=== PATIENT | female | born 1990 | race Caucasian/White ===

== ENCOUNTER 2016-11-30 19:20 | Emergency (ER) | payer SELFPAY ==
[2016-11-30 20:54] LABS: MEAN CORPUSCULAR HEMOGLOBIN 30.4 pg (27.0-33.0); MEAN CORPUSCULAR HGB CONC 34.3 g/dl (32.0-36.5); MEAN CORPUSCULAR VOLUME 88.6 fl (80.0-96.0); RED CELL DISTRIBUTION WIDTH 13.4 % (11.5-14.5); WHITE BLOOD COUNT 7.8 K/mm3 (4.0-10.0)
--- NOTE | 2016-11-30 21:10 | REPUSA ---
Clinical history: bleeding. Findings: Real-time transabdominal and transvaginal ultrasound images of the pelvis were obtained. An anteverted uterus is noted, measuring 8.1 x 4.5 x 4.9 cm. The uterus demonstrates normal echotexture and echogenicity. The irregular shaped intrauterine gestational sac has a mean sac diameter 18.8 mm, measuring 5 weeks 5 days. The gestational sac is located in the lower uterine canal. No pole o r yolk sac is identified at this time. The right ovary measures 3.2 x 2.0 x 1.9 cm. The left ovary me asures 2.2 x 1.5 x 2.3 cm. No adnexal masses are seen. Color Doppler flow is seen within both ovaries . There is no evidence of free fluid. Impression: 1. Irregular shaped intrauterine gestational sac is located in the lower uterine canal, without evide nce of a pole or yolk sac. The sac measures 5 weeks 5 days by ultrasound measurements. The find ings are most suggestive of a in progress. Follow-up with serial serum beta hCG levels may b e helpful for further evaluation.
[2016-11-30 21:25] LABS: ANION GAP 8 MEQ/L (8-16); BLOOD UREA NITROGEN 13 MG/DL (7-18); CALCIUM LEVEL 9.4 MG/DL (8.5-10.1); CARBON DIOXIDE LEVEL 30 MEQ/L (21-32); CHLORIDE LEVEL 100 MEQ/L (98-107); CREATININE FOR GFR 0.57 MG/DL (0.55-1.02); GLOMERULAR FILTRATION RATE > 60.0 (>60); GLUCOSE, FASTING 90 MG/DL (70-105); HCG, SERUM QUANTITATIVE 2453 MIU/ML; POTASSIUM SERUM 4.1 MEQ/L (3.5-5.1); SODIUM LEVEL 138 MEQ/L (136-145)
--- NOTE | 2016-11-30 22:39 | EDDOCDS ---
Physician Documentation [facility] Name: Ann Wu Age: 26 yrs Sex: Female : 1990 Arrival Date: 11/30/2016 Time: 19:20 Bed TR8 Private MD: NO PRIMARY PHYSICIAN, . Disposition: 11/30/16 22:27 Discharged to Home/Self Care. Impression: Incomplete spontaneous without complication. - Condition is Stable. - Discharge Instructions: Incomplete Miscarriage, Miscarriage. - Prescriptions for Percocet 5- 325 mg Oral Tablet - take 1 tablet by ORAL route every 6 hours As needed MDD: 4 tabs; 20 tablet. - Medication Reconciliation, Local Pharmacy Hours form. - Follow up: Woody Devi MD; When: Call to arrange an appointment; Reason: Recheck today's complaints, Continuance of care. - Problem is new. - Symptoms are unchanged. Historical: - Allergies: No known drug Allergies; - Home Meds: 1. vitamins - PMHx: none; - PSHx: none; - Social history: Smoking status: Patient uses tobacco products, light tobacco smoker. No barriers to communication noted, The patient speaks fluent Moroccan, Speaks appropriately for age. - Family history: No immediate family members are acutely ill. - : The pt / caregiver states he / she is not on anticoagulants. Home medication list is obtained from the patient. - Exposure Risk Screening:: None identified. 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 7 in. (170.18 cm) (R); Pain 3/10; 19:22 Body Mass Index 24.28 (70.31 kg, 170.18 cm) gr2 MDM: 19:30 Urine Culture Ordered. EDMS 19:30 Complete Blood Count Ordered. EDMS 19:30 Hcg, Serum Quantitative Ordered. EDMS 19:30 Type & Screen Ordered. EDMS 19:30 Urinalysis Ordered. EDMS 19:30 BMP Ordered. EDMS 19:30 US 1st trimester Ordered. EDMS 20:37 TRANSVAGINAL US Ordered. EDMS 20:37 DUPLEX SCAN LIMITED (DOPPLER) Ordered. EDMS 22:11 BMP Reviewed. mo1 22:12 Type & Screen Reviewed. mo1 22:12 Urinalysis Reviewed. mo1 22:12 Complete Blood Count Reviewed. mo1 22:12 Hcg, Serum Quantitative Reviewed. mo1 Signatures: Dispatcher [employer] EDMario Lomax RN RN cz Hal Fregoso PA PA mo1 Hal Woodard RN RN mb9 MTDD
--- NOTE | 2016-11-30 22:39 | EDDOCDS ---
Nurse's Notes [facility] Name: Ann Wu Age: 26 yrs Sex: Female : 1990 Arrival Date: 11/30/2016 Time: 19:20 Bed TR8 Private MD: NO PRIMARY PHYSICIAN, . Diagnosis: Incomplete spontaneous without complication Presentation: 11/30 19:22 Presenting complaint: Patient states: she is positive test at [facility]. started spotting since beginning and bleeding intermittently since with flow getting more,now bleeding non-stop 1 pad an hour. Risk factors: The patient reports no loss of conciousness prior to arrival. This patient has not had a hysterectomy. This patient has not begun menopause. Adult Sepsis Screening: The patient does not have new or worsening altered mentation. Patient's respiratory rate is less than 22. Systolic blood pressure is greater than 100. Patient has a qSOFA score of 0- Negative Sepsis Screen. Suicide/Homicide risk assessment- the patient denies having any suicidal and/or homicidal ideations and does not present with any other emotional, behavioral or mental health complaints. Status: Patient is not a student services advisor or dependent. Transition of care: patient was not received from another setting of care. 19:22 Acuity: NUNU Level 3 cz 19:22 Method Of Arrival: Walkin/Carried/Asstd cz Triage Assessment: 19:25 General: Appears in no apparent distress. Pain: Location: pelvis Pain currently is 4 cz out of 10 on a pain scale. Pt Declines HIV testing. 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 vitamins - PMHx: none; - PSHx: none; - Social history: Smoking status: Patient uses tobacco products, light tobacco smoker. No barriers to communication noted, The patient speaks fluent French, Speaks appropriately for age. - Family history: No immediate family members are acutely ill. - : The pt / caregiver states he / she is not on anticoagulants. Home medication list is obtained from the patient. - Exposure Risk Screening:: None identified. Screenin:37 Screening information is obtained from the patient. Fall risk: No risks identified. mb9 Assistance ADL's: requires no assistance with activities of daily living. Abuse/DV Screen: The patient / caregiver reports he/she is: not in a situation that causes fear, pain or injury. Nutritional screening: No deficits noted. Advance Directives: There is no active DNR order. home support is adequate. Assessment: 22:37 General: Appears in no apparent distress, Behavior is appropriate for age, cooperative. mb9 Respiratory: Airway is patent Respiratory effort is even, unlabored. : Reports vaginal bleeding that is with clots. Vital Signs: 19:22 BP 149 / 83; Pulse 96; Resp 18 S; Temp 97.3(O); Pulse Ox 100% on R/A; Weight 70.31 kg gr2 (R); Height 5 ft. 7 in. (170.18 cm) (R); Pain 3/10; 19:22 Body Mass Index 24.28 (70.31 kg, 170.18 cm) gr2 Vitals: 19:22 Log In Time: November 30, 2016 at 19:22. gr2 ED Course: 19:21 Patient visited by Elsa Rachel. gr2 19:21 NO PRIMARY PHYSICIAN, . is Private Physician. gr2 19:21 Patient moved to Waiting gr2 19:22 Patient visited by Elsa Rachel. gr2 19:23 Patient moved to Pre RCE gr2 19:25 Triage Initiated cz 20:09 Patient moved to Ultrasound dmg 20:22 Urinalysis Sent. ar3 20:22 Urine Culture Sent. ar3 20:30 Patient moved to PR1 / 25 ar3 20:39 Patient moved to Pre RCE mb9 20:41 Complete Blood Count Sent. ar3 20:41 BMP Sent. ar3 20:41 Hcg, Serum Quantitative Sent. ar3 20:41 Type & Screen Sent. ar3 21:33 US 1st trimester Returned. EDMS 21:55 Patient moved to Triage 3 mb9 22:05 Hal Fregoso PA is PHCP. mo1 22:05 Ashwin Fulton MD is Attending Physician. mo1 22:13 Patient visited by Hal Fregoso PA. mo1 22:27 Woody Devi MD is Referral Physician. mo1 22:34 Patient moved to TR8 mb9 22:37 The patient / caregiver is instructed regarding the plan of care and ED course. mb9 22:37 No IV's were initiated during this patient's visit. No procedures done that require mb9 assistance. Order Results: Lab Order: Complete Blood Count; [facility] 11/30/16 20:39 Test: WHITE BLOOD COUNT; Value: 7.8; Range: 4.0-10.0; Units: K/mm3; Status: F Test: RED BLOOD COUNT; Value: 4.01; Range: 4.00-5.40; Units: M/mm3; Status: F Test: HEMOGLOBIN; Value: 12.2; Range: 12.0-16.0; Units: g/dl; Status: F Test: HEMATOCRIT; Value: 35.5; Range: 36.0-47.0; Abnormal: Below low normal; Units: %; Status: F Test: MEAN CORPUSCULAR VOLUME; Value: 88.6; Range: 80.0-96.0; Units: fl; Status: F Test: MEAN CORPUSCULAR HEMOGLOBIN; Value: 30.4; Range: 27.0-33.0; Units: pg; Status: F Test: MEAN CORPUSCULAR HGB CONC; Value: 34.3; Range: 32.0-36.5; Units: g/dl; Status: F Test: RED CELL DISTRIBUTION WIDTH; Value: 13.4; Range: 11.5-14.5; Units: %; Status: F Test: PLATELET COUNT, AUTOMATED; Value: 303; Range: 150-450; Units: k/mm3; Status: F Lab Order: Hcg, Serum Quantitative; [facility] 11/30/16 20:39 Test: HCG, SERUM QUANTITATIVE; Value: 2453; Units: MIU/ML; Status: F Test Note: ; GESTATIONAL AGE APPROXIMATE HCG RANGE (MIU/ML) 0.2-1 WEEK 5-50 1-2 WEEKS 50-500 2-3 WEEKS 100-5,000 3-4 WEEKS 500-10,000 4-5 WEEKS 1,000-50,000 5-6 WEEKS 10,000-100,000 6-8 WEEKS 15,000-200,000 2-3 MONTHS 10,000-100,000 NON FEMALES LESS THAN 3.0 Patient samples may contain human heterophilic antibodies that could react with immunoassays to give falsely elevated or depressed results. This assay has been designed to minimize interference from heterophilic antibodies. Elevated hCG levels have also been associated with trophoblastic disease and nontrophoblastic neoplasms. The possibility of having these diseases should be considered before a diagnosis of is made. This test is not intended for use as a surrogate marker for aiding in the diagnosis or monitoring the treatment of cancer patients. Siemens GeoMetWatch methodology. Lab Order: Type & Screen; SPEC'M 11/30/16 20:39 Test: BLOOD TYPE; Value: O POS; Status: F Test: AB SCREEN (INDIRECT SHIRA)GEL; Value: NEGATIVE; Status: F Lab Order: Urinalysis; SPEC'M 11/30/16 20:20 Test: APPEARANCE, URINE; Value: CLEAR; Range: CLEAR; Status: F Test: COLOR, URINE; Value: YELLOW; Range: YELLOW; Status: F Test: PH,URINE; Value: 5.0; Range: 5.0-9.0; Units: UNITS; Status: F Test: SPECIFIC GRAVITY URINE AUTO; Value: 1.019; Range: 1.002-1.035; Status: F Test: PROTEIN, URINE AUTO; Value: NEGATIVE; Range: NEGATIVE; Units: mg/dL; Status: F Test: GLUCOSE, URINE (UA) AUTO; Value: NEGATIVE; Range: NEGATIVE; Units: mg/dL; Status: F Test: KETONE, URINE AUTO; Value: NEGATIVE; Range: NEGATIVE; Units: mg/dL; Status: F Test: UROBILINOGEN, URINE AUTO; Value: 0.2; Range: 0.0-2.0; Units: mg/dL; Status: F Test: BILIRUBIN, URINE AUTO; Value: NEGATIVE; Range: NEGATIVE; Status: F Test: NITRITE, URINE AUTO; Value: NEGATIVE; Range: NEGATIVE; Status: F Test: LEUKOCYTE ESTERASE, URINE AUTO; Value: NEGATIVE; Range: NEGATIVE; Status: F Test: BLOOD, URINE BLOOD; Value: 2+; Range: NEGATIVE; Abnormal: Above high normal; Status: F Test: WBC, URINE AUTO; Value: 1; Range: 0-3; Units: /HPF; Status: F Test: RBC, URINE AUTO; Value: 5; Range: 0-3; Abnormal: Above high normal; Units: /HPF; Status: F Test: BACTERIA, URINE AUTO; Value: NEGATIVE; Range: NEGATIVE; Status: F Test: SQUAMOUS EPITHELIAL CELL UR AU; Value: 1; Range: 0-6; Units: /HPF; Status: F Test: MUCUS, URINE; Value: SMALL; Range: NEGATIVE; Status: F Test: HYALINE CAST, URINE AUTO; Value: 0; Range: 0-1; Units: /LPF; Status: F Test: AMORPHOUS SEDIMENT; Value: SMALL; Range: NEGATIVE; Abnormal: Above high normal; Status: F Lab Order: [facility]; SPEC'M 11/30/16 20:39 Test: GLUCOSE, FASTING; Value: 90; Range: 70-105; Units: MG/DL; Status: F Test: BLOOD UREA NITROGEN; Value: 13; Range: 7-18; Units: MG/DL; Status: F Test: CREATININE FOR GFR; Value: 0.57; Range: 0.55-1.02; Units: MG/DL; Status: F Test: GLOMERULAR FILTRATION RATE; Value: > 60.0; Range: >60; Status: F Test: SODIUM LEVEL; Value: 138; Range: 136-145; Units: MEQ/L; Status: F Test: POTASSIUM SERUM; Value: 4.1; Range: 3.5-5.1; Units: MEQ/L; Status: F Test: CHLORIDE LEVEL; Value: 100; Range: 98-107; Units: MEQ/L; Status: F Test: CARBON DIOXIDE LEVEL; Value: 30; Range: 21-32; Units: MEQ/L; Status: F Test: ANION GAP; Value: 8; Range: 8-16; Units: MEQ/L; Status: F Test: CALCIUM LEVEL; Value: 9.4; Range: 8.5-10.1; Units: MG/DL; Status: F Test Note: ; Units are mL/min/1.73 m2 Chronic Kidney Disease Staging per NKF: Stage I & II GFR >=60 Normal to Mildly Decreased Stage III GFR 30-59 Moderately Decreased Stage IV GFR 15-29 Severely Decreased Stage V GFR <15 Very Little GFR Left ESRD GFR <15 on ADMINISTRATIVE SUPERVISOR Radiology Order: US 1st trimester Test: US 1st trimester REASON FOR EXAMINATION: 9wks bleeding; ; Clinical history: bleeding.; Findings: Real-time transabdominal and transvaginal ultrasound images of the pelvis were obtained. An; anteverted uterus is noted, measuring 8.1 x 4.5 x 4.9 cm. The uterus demonstrates normal echotexture; and echogenicity. The irregular shaped intrauterine gestational sac has a mean sac diameter 18.8 mm,; measuring 5 weeks 5 days. The gestational sac is located in the lower uterine canal. No pole o; r yolk sac is identified at this time. The right ovary measures 3.2 x 2.0 x 1.9 cm. The left ovary me; asures 2.2 x 1.5 x 2.3 cm. No adnexal masses are seen. Color Doppler flow is seen within both ovaries; . There is no evidence of free fluid.; Impression:; 1. Irregular shaped intrauterine gestational sac is located in the lower uterine canal, without evide; nce of a pole or yolk sac. The sac measures 5 weeks 5 days by ultrasound measurements. The find; ings are most suggestive of a in progress. Follow-up with serial serum beta hCG levels may b; e helpful for further evaluation.; ; Outcome: 22:27 Discharge ordered by Provider. mo1 22:37 Discharge Assessment: Patient awake, alert and oriented x 3. No cognitive and/or mb9 functional deficits noted. Patient verbalized understanding of disposition instructions. patient administered narcotics - no. The following High Risk Discharge criteria are identified: None. Discharged to home ambulatory. Condition: good Condition: stable Condition: improved. Discharge instructions given to patient, Instructed on discharge instructions, follow up and referral plans. medication usage, Demonstrated understanding of instructions, medications, Pt was receptive of discharge instructions/ teaching. Prescriptions given X 1. Ultrasound Study completed. Property :Personal belongings accompany Pt. 22:39 Patient left the ED. mb9 Signatures: Dispatcher [employer] EDMS Mario Greco, RN Key Grajeda Alicia, PCA E COMMERCE PROJECT MANAGER ar3 Elsa Rachel gr2 Hal Fregoso PA PA mo1 Hal Woodard,ELODIA CLIFTON mb9 MTDD
--- NOTE | 2016-12-02 23:40 | EDDOCDS ---
Nurse's Notes [facility] Name: Ann Wu Age: 26 yrs Sex: Female : 1990 Arrival Date: 11/30/2016 Time: 19:20 Bed TR8 Private MD: NO PRIMARY PHYSICIAN, . Diagnosis: Incomplete spontaneous without complication Presentation: 11/30 19:22 Presenting complaint: Patient states: she is positive test at [facility]. started spotting since beginning and bleeding intermittently since with flow getting more,now bleeding non-stop 1 pad an hour. Risk factors: The patient reports no loss of conciousness prior to arrival. This patient has not had a hysterectomy. This patient has not begun menopause. Adult Sepsis Screening: The patient does not have new or worsening altered mentation. Patient's respiratory rate is less than 22. Systolic blood pressure is greater than 100. Patient has a qSOFA score of 0- Negative Sepsis Screen. Suicide/Homicide risk assessment- the patient denies having any suicidal and/or homicidal ideations and does not present with any other emotional, behavioral or mental health complaints. Status: Patient is not a human resources services specialist or dependent. Transition of care: patient was not received from another setting of care. 19:22 Acuity: NUNU Level 3 cz 19:22 Method Of Arrival: Walkin/Carried/Asstd cz Triage Assessment: 19:25 General: Appears in no apparent distress. Pain: Location: pelvis Pain currently is 4 cz out of 10 on a pain scale. Pt Declines HIV testing. HEEL SEWER: 19:25 LMP 09/25/2016, Verified, EDC 07/02/2017, Gestational age from LMP: 9 weeks 4 cz days Historical: - Allergies: No known drug Allergies; - Home Meds: 1. vitamins - PMHx: none; - PSHx: none; - Social history: Smoking status: Patient uses tobacco products, light tobacco smoker. No barriers to communication noted, The patient speaks fluent Frisian, Speaks appropriately for age. - Family history: No immediate family members are acutely ill. - : The pt / caregiver states he / she is not on anticoagulants. Home medication list is obtained from the patient. - Exposure Risk Screening:: None identified. Screenin:37 Screening information is obtained from the patient. Fall risk: No risks identified. mb9 Assistance ADL's: requires no assistance with activities of daily living. Abuse/DV Screen: The patient / caregiver reports he/she is: not in a situation that causes fear, pain or injury. Nutritional screening: No deficits noted. Advance Directives: There is no active DNR order. home support is adequate. Assessment: 22:37 General: Appears in no apparent distress, Behavior is appropriate for age, cooperative. mb9 Respiratory: Airway is patent Respiratory effort is even, unlabored. : Reports vaginal bleeding that is with clots. Vital Signs: 19:22 BP 149 / 83; Pulse 96; Resp 18 S; Temp 97.3(O); Pulse Ox 100% on R/A; Weight 70.31 kg gr2 (R); Height 5 ft. 7 in. (170.18 cm) (R); Pain 3/10; 19:22 Body Mass Index 24.28 (70.31 kg, 170.18 cm) gr2 Vitals: 19:22 Log In Time: November 30, 2016 at 19:22. gr2 ED Course: 19:21 Patient visited by Elsa Rachel. gr2 19:21 NO PRIMARY PHYSICIAN, . is Private Physician. gr2 19:21 Patient moved to Waiting gr2 19:22 Patient visited by Elsa Rachel. gr2 19:23 Patient moved to Pre RCE gr2 19:25 Triage Initiated cz 20:09 Patient moved to Ultrasound dmg 20:22 Urinalysis Sent. ar3 20:22 Urine Culture Sent. ar3 20:30 Patient moved to PR1 / 25 ar3 20:39 Patient moved to Pre RCE mb9 20:41 Complete Blood Count Sent. ar3 20:41 BMP Sent. ar3 20:41 Hcg, Serum Quantitative Sent. ar3 20:41 Type & Screen Sent. ar3 21:33 US 1st trimester Returned. EDMS 21:55 Patient moved to Triage 3 mb9 22:05 Hal Fregoso PA is PHCP. mo1 22:05 Ashwin Fulton MD is Attending Physician. mo1 22:13 Patient visited by Hal Fregoso PA. mo1 22:27 Woody Devi MD is Referral Physician. mo1 22:34 Patient moved to TR8 mb9 22:37 The patient / caregiver is instructed regarding the plan of care and ED course. mb9 22:37 No IV's were initiated during this patient's visit. No procedures done that require mb9 assistance. 23:21 [facility] [place] Payment Agreement was scanned into [employer] and attached to record. gjb 12/01 09:36 T-Sheet-- Draft Copy was scanned into [employer] and attached to record. gb 09:36 Radiology Report was scanned into [employer] and attached to record. gb Order Results: Lab Order: Complete Blood Count; [facility] 11/30/16 20:39 Test: WHITE BLOOD COUNT; Value: 7.8; Range: 4.0-10.0; Units: K/mm3; Status: F Test: RED BLOOD COUNT; Value: 4.01; Range: 4.00-5.40; Units: M/mm3; Status: F Test: HEMOGLOBIN; Value: 12.2; Range: 12.0-16.0; Units: g/dl; Status: F Test: HEMATOCRIT; Value: 35.5; Range: 36.0-47.0; Abnormal: Below low normal; Units: %; Status: F Test: MEAN CORPUSCULAR VOLUME; Value: 88.6; Range: 80.0-96.0; Units: fl; Status: F Test: MEAN CORPUSCULAR HEMOGLOBIN; Value: 30.4; Range: 27.0-33.0; Units: pg; Status: F Test: MEAN CORPUSCULAR HGB CONC; Value: 34.3; Range: 32.0-36.5; Units: g/dl; Status: F Test: RED CELL DISTRIBUTION WIDTH; Value: 13.4; Range: 11.5-14.5; Units: %; Status: F Test: PLATELET COUNT, AUTOMATED; Value: 303; Range: 150-450; Units: k/mm3; Status: F Lab Order: Hcg, Serum Quantitative; SPEC'M 11/30/16 20:39 Test: HCG, SERUM QUANTITATIVE; Value: 2453; Units: MIU/ML; Status: F Test Note: ; GESTATIONAL AGE APPROXIMATE HCG RANGE (MIU/ML) 0.2-1 WEEK 5-50 1-2 WEEKS 50-500 2-3 WEEKS 100-5,000 3-4 WEEKS 500-10,000 4-5 WEEKS 1,000-50,000 5-6 WEEKS 10,000-100,000 6-8 WEEKS 15,000-200,000 2-3 MONTHS 10,000-100,000 NON FEMALES LESS THAN 3.0 Patient samples may contain human heterophilic antibodies that could react with immunoassays to give falsely elevated or depressed results. This assay has been designed to minimize interference from heterophilic antibodies. Elevated hCG levels have also been associated with trophoblastic disease and nontrophoblastic neoplasms. The possibility of having these diseases should be considered before a diagnosis of is made. This test is not intended for use as a surrogate marker for aiding in the diagnosis or monitoring the treatment of cancer patients. Siemens Kibin methodology. Lab Order: Type & Screen; SPEC'M 11/30/16 20:39 Test: BLOOD TYPE; Value: O POS; Status: F Test: AB SCREEN (INDIRECT SHIRA)GEL; Value: NEGATIVE; Status: F Lab Order: Urinalysis; SPEC'M 11/30/16 20:20 Test: APPEARANCE, URINE; Value: CLEAR; Range: CLEAR; Status: F Test: COLOR, URINE; Value: YELLOW; Range: YELLOW; Status: F Test: PH,URINE; Value: 5.0; Range: 5.0-9.0; Units: UNITS; Status: F Test: SPECIFIC GRAVITY URINE AUTO; Value: 1.019; Range: 1.002-1.035; Status: F Test: PROTEIN, URINE AUTO; Value: NEGATIVE; Range: NEGATIVE; Units: mg/dL; Status: F Test: GLUCOSE, URINE (UA) AUTO; Value: NEGATIVE; Range: NEGATIVE; Units: mg/dL; Status: F Test: KETONE, URINE AUTO; Value: NEGATIVE; Range: NEGATIVE; Units: mg/dL; Status: F Test: UROBILINOGEN, URINE AUTO; Value: 0.2; Range: 0.0-2.0; Units: mg/dL; Status: F Test: BILIRUBIN, URINE AUTO; Value: NEGATIVE; Range: NEGATIVE; Status: F Test: NITRITE, URINE AUTO; Value: NEGATIVE; Range: NEGATIVE; Status: F Test: LEUKOCYTE ESTERASE, URINE AUTO; Value: NEGATIVE; Range: NEGATIVE; Status: F Test: BLOOD, URINE BLOOD; Value: 2+; Range: NEGATIVE; Abnormal: Above high normal; Status: F Test: WBC, URINE AUTO; Value: 1; Range: 0-3; Units: /HPF; Status: F Test: RBC, URINE AUTO; Value: 5; Range: 0-3; Abnormal: Above high normal; Units: /HPF; Status: F Test: BACTERIA, URINE AUTO; Value: NEGATIVE; Range: NEGATIVE; Status: F Test: SQUAMOUS EPITHELIAL CELL UR AU; Value: 1; Range: 0-6; Units: /HPF; Status: F Test: MUCUS, URINE; Value: SMALL; Range: NEGATIVE; Status: F Test: HYALINE CAST, URINE AUTO; Value: 0; Range: 0-1; Units: /LPF; Status: F Test: AMORPHOUS SEDIMENT; Value: SMALL; Range: NEGATIVE; Abnormal: Above high normal; Status: F Lab Order: Urine Culture; SPEC' 11/30/16 20:20 Test: URINE CULTURE; Value: URINE CULTURE RESULT NO GROWTH; Status: F Lab Order: BMP; SPEC' 11/30/16 20:39 Test: GLUCOSE, FASTING; Value: 90; Range: 70-105; Units: MG/DL; Status: F Test: BLOOD UREA NITROGEN; Value: 13; Range: 7-18; Units: MG/DL; Status: F Test: CREATININE FOR GFR; Value: 0.57; Range: 0.55-1.02; Units: MG/DL; Status: F Test: GLOMERULAR FILTRATION RATE; Value: > 60.0; Range: >60; Status: F Test: SODIUM LEVEL; Value: 138; Range: 136-145; Units: MEQ/L; Status: F Test: POTASSIUM SERUM; Value: 4.1; Range: 3.5-5.1; Units: MEQ/L; Status: F Test: CHLORIDE LEVEL; Value: 100; Range: 98-107; Units: MEQ/L; Status: F Test: CARBON DIOXIDE LEVEL; Value: 30; Range: 21-32; Units: MEQ/L; Status: F Test: ANION GAP; Value: 8; Range: 8-16; Units: MEQ/L; Status: F Test: CALCIUM LEVEL; Value: 9.4; Range: 8.5-10.1; Units: MG/DL; Status: F Test Note: ; Units are mL/min/1.73 m2 Chronic Kidney Disease Staging per NKF: Stage I & II GFR >=60 Normal to Mildly Decreased Stage III GFR 30-59 Moderately Decreased Stage IV GFR 15-29 Severely Decreased Stage V GFR <15 Very Little GFR Left ESRD GFR <15 on [employer] DEPARTMENT CHAIR Radiology Order: US 1st trimester Test: US 1st trimester REASON FOR EXAMINATION: 9wks bleeding; ; Clinical history: bleeding.; Findings: Real-time transabdominal and transvaginal ultrasound images of the pelvis were obtained. An; anteverted uterus is noted, measuring 8.1 x 4.5 x 4.9 cm. The uterus demonstrates normal echotexture; and echogenicity. The irregular shaped intrauterine gestational sac has a mean sac diameter 18.8 mm,; measuring 5 weeks 5 days. The gestational sac is located in the lower uterine canal. No pole o; r yolk sac is identified at this time. The right ovary measures 3.2 x 2.0 x 1.9 cm. The left ovary me; asures 2.2 x 1.5 x 2.3 cm. No adnexal masses are seen. Color Doppler flow is seen within both ovaries; . There is no evidence of free fluid.; Impression:; 1. Irregular shaped intrauterine gestational sac is located in the lower uterine canal, without evide; nce of a pole or yolk sac. The sac measures 5 weeks 5 days by ultrasound measurements. The find; ings are most suggestive of a in progress. Follow-up with serial serum beta hCG levels may b; e helpful for further evaluation.; ; Outcome: 11/30 22:27 Discharge ordered by Provider. mo1 22:37 Discharge Assessment: Patient awake, alert and oriented x 3. No cognitive and/or mb9 functional deficits noted. Patient verbalized understanding of disposition instructions. patient administered narcotics - no. The following High Risk Discharge criteria are identified: None. Discharged to home ambulatory. Condition: good Condition: stable Condition: improved. Discharge instructions given to patient, Instructed on discharge instructions, follow up and referral plans. medication usage, Demonstrated understanding of instructions, medications, Pt was receptive of discharge instructions/ teaching. Prescriptions given X 1. Ultrasound Study completed. Property :Personal belongings accompany Pt. 22:39 Patient left the ED. mb9 Signatures: Dispatcher [employer] Mario Mcdonald, RN RN cz Key Giordano dmg Rozina Brock, Reg Reg gb Mary Jarquin, OCCUPATIONAL THERAPIST OCCUPATIONAL THERAPIST ar3 Elsa Rachel gr2 Hal Fregoso PA PA mo1 Hal Woodard,ELODIA RN mb9 Emma Beaver Chart Complete MTDD
--- NOTE | 2016-12-02 23:40 | EDDOCDS ---
Physician Documentation [facility] Name: Ann Wu Age: 26 yrs Sex: Female : 1990 Arrival Date: 11/30/2016 Time: 19:20 Bed TR8 Private MD: NO PRIMARY PHYSICIAN, . Disposition: 11/30/16 22:27 Discharged to Home/Self Care. Impression: Incomplete spontaneous without complication. - Condition is Stable. - Discharge Instructions: Incomplete Miscarriage, Miscarriage. - Prescriptions for Percocet 5- 325 mg Oral Tablet - take 1 tablet by ORAL route every 6 hours As needed MDD: 4 tabs; 20 tablet. - Medication Reconciliation, Local Pharmacy Hours form. - Follow up: Woody Devi MD; When: Call to arrange an appointment; Reason: Recheck today's complaints, Continuance of care. - Problem is new. - Symptoms are unchanged. Historical: - Allergies: No known drug Allergies; - Home Meds: 1. vitamins - PMHx: none; - PSHx: none; - Social history: Smoking status: Patient uses tobacco products, light tobacco smoker. No barriers to communication noted, The patient speaks fluent Chilean, Speaks appropriately for age. - Family history: No immediate family members are acutely ill. - : The pt / caregiver states he / she is not on anticoagulants. Home medication list is obtained from the patient. - Exposure Risk Screening:: None identified. SWEET POTATO DISINTEGRATOR: 11/30 19:25 LMP 09/25/2016, Verified, EDC 07/02/2017, Gestational age from LMP: 9 weeks 4 cz days Vital Signs: 19:22 BP 149 / 83; Pulse 96; Resp 18 S; Temp 97.3(O); Pulse Ox 100% on R/A; Weight 70.31 kg / gr2 155.01 lbs (R); Height 5 ft. 7 in. (170.18 cm) (R); Pain 3/10; 19:22 Body Mass Index 24.28 (70.31 kg, 170.18 cm) gr2 MDM: 19:30 Urine Culture Ordered. EDMS 19:30 Complete Blood Count Ordered. EDMS 19:30 Hcg, Serum Quantitative Ordered. EDMS 19:30 Type & Screen Ordered. EDMS 19:30 Urinalysis Ordered. EDMS 19:30 BMP Ordered. EDMS 19:30 US 1st trimester Ordered. EDMS 20:37 TRANSVAGINAL US Ordered. EDMS 20:37 DUPLEX SCAN LIMITED (DOPPLER) Ordered. EDMS 22:11 BMP Reviewed. mo1 22:12 Type & Screen Reviewed. mo1 22:12 Urinalysis Reviewed. mo1 22:12 Complete Blood Count Reviewed. mo1 22:12 Hcg, Serum Quantitative Reviewed. mo1 23:21 [facility] [place] Agreement was scanned into [employer] and attached to record. gjb 23:21 Financial registration complete. gjb 12/01 09:36 T-Sheet-- Draft Copy was scanned into [employer] and attached to record. gb 09:36 Radiology Report was scanned into [employer] and attached to record. gb Signatures: Dispatcher [employer] EDMario Lomax, ELODIA RN cz Rozina Brock, Reg Reg gb Hal Frgeoso PA PA mo1 Hal Woodard RN RN mb9 Emma Beaver [facility] The chart was reviewed and I authenticate all verbal orders and agree with the evaluation and treatment provided.Attachments: 11/30 23:21 [facility] Payment Agreement gjb 12/01 09:36 T-Sheet-- Draft Copy gb Chart Complete MTDD
--- NOTE | 2016-12-02 23:40 | EDDOCDS ---
Physician Documentation [facility] Name: Ann Wu Age: 26 yrs Sex: Female : 1990 Arrival Date: 11/30/2016 Time: 19:20 Bed TR8 Private MD: NO PRIMARY PHYSICIAN, . Disposition: 11/30/16 22:27 Discharged to Home/Self Care. Impression: Incomplete spontaneous without complication. - Condition is Stable. - Discharge Instructions: Incomplete Miscarriage, Miscarriage. - Prescriptions for Percocet 5- 325 mg Oral Tablet - take 1 tablet by ORAL route every 6 hours As needed MDD: 4 tabs; 20 tablet. - Medication Reconciliation, Local Pharmacy Hours form. - Follow up: Woody Devi MD; When: Call to arrange an appointment; Reason: Recheck today's complaints, Continuance of care. - Problem is new. - Symptoms are unchanged. Historical: - Allergies: No known drug Allergies; - Home Meds: 1. vitamins - PMHx: none; - PSHx: none; - Social history: Smoking status: Patient uses tobacco products, light tobacco smoker. No barriers to communication noted, The patient speaks fluent Mongolian, Speaks appropriately for age. - Family history: No immediate family members are acutely ill. - : The pt / caregiver states he / she is not on anticoagulants. Home medication list is obtained from the patient. - Exposure Risk Screening:: None identified. FRATERNITY ADVISER: 11/30 19:25 LMP 09/25/2016, Verified, EDC 07/02/2017, Gestational age from LMP: 9 weeks 4 cz days Vital Signs: 19:22 BP 149 / 83; Pulse 96; Resp 18 S; Temp 97.3(O); Pulse Ox 100% on R/A; Weight 70.31 kg / gr2 155.01 lbs (R); Height 5 ft. 7 in. (170.18 cm) (R); Pain 3/10; 19:22 Body Mass Index 24.28 (70.31 kg, 170.18 cm) gr2 MDM: 19:30 Urine Culture Ordered. EDMS 19:30 Complete Blood Count Ordered. EDMS 19:30 Hcg, Serum Quantitative Ordered. EDMS 19:30 Type & Screen Ordered. EDMS 19:30 Urinalysis Ordered. EDMS 19:30 BMP Ordered. EDMS 19:30 US 1st trimester Ordered. EDMS 20:37 TRANSVAGINAL US Ordered. EDMS 20:37 DUPLEX SCAN LIMITED (DOPPLER) Ordered. EDMS 22:11 BMP Reviewed. mo1 22:12 Type & Screen Reviewed. mo1 22:12 Urinalysis Reviewed. mo1 22:12 Complete Blood Count Reviewed. mo1 22:12 Hcg, Serum Quantitative Reviewed. mo1 23:21 [facility] [place] Payment Agreement was scanned into [employer] and attached to record. gjb 23:21 Financial registration complete. gjb 12/01 09:36 T-Sheet-- Draft Copy was scanned into [employer] and attached to record. gb 09:36 Radiology Report was scanned into [employer] and attached to record. gb Signatures: Dispatcher [employer] EDMario Lomax, ELODIA RN cz Rozina Brock, Reg Reg gb Hal Fregoso PA PA mo1 Hal Woodard RN RN mb9 Emma Beaver [facility] The chart was reviewed and I authenticate all verbal orders and agree with the evaluation and treatment provided.Attachments: 11/30 23:21 [facility] Payment Agreement gjb 12/01 09:36 T-Sheet-- Draft Copy gb Chart Complete MTDD
== END 2016-11-30 22:39 | disposition home or self-care (01) ==
LOC: M ED 19:20
DX: O03.4 Incomplete spontaneous abortion without complication (principal); Z3A.09 9 weeks gestation of pregnancy; O99.331 Smoking (tobacco) complicating pregnancy, first trimester; F17.210 Nicotine dependence, cigarettes, uncomplicated

== ENCOUNTER → 2019-05-22 | Outpatient (REF) | payer OTHER, MEDICAID ==
[2019-05-22 20:11] LABS: ALT/SGPT 85 U/L (12-78); BILIRUBIN,TOTAL 0.4 MG/DL (0.2-1.0); BLOOD UREA NITROGEN 16 MG/DL (7-18); CALCIUM LEVEL 9.1 MG/DL (8.5-10.1); CARBON DIOXIDE LEVEL 27 MEQ/L (21-32); CHLORIDE LEVEL 103 MEQ/L (98-107); CHOLESTEROL LEVEL 163 MG/DL (<200); CHOLESTEROL RISK RATIO 5.433 (<5); CREATININE FOR GFR 0.68 MG/DL (0.55-1.30); FREE T4 0.93 NG/DL (0.76-1.46); GLOMERULAR FILTRATION RATE > 60.0 (>60); GLUCOSE, FASTING 80 MG/DL (70-100); HDL CHOLESTEROL 30 MG/DL (>40); NON-HDL-C 133 MG/DL; SODIUM LEVEL 137 MEQ/L (136-145); TOTAL PROTEIN 8.2 GM/DL (6.4-8.2); TRIGLYCERIDES LEVEL 403 MG/DL (<150)
[2019-05-22 20:48] LABS: HEMOGLOBIN A1c 5.3 %
== END ==
LOC: M LAB REF 19:28
PROVIDERS: ATTEND Family Medicine
DX: Z13.228 Encounter for screening for other metabolic disorders (principal)

== ENCOUNTER → 2019-08-22 | Outpatient (REF) | payer OTHER, MEDICAID ==
[2019-08-22 14:09] LABS: ALBUMIN 3.8 GM/DL (3.2-5.2); ALT/SGPT 88 U/L (12-78); BILIRUBIN,TOTAL 0.3 MG/DL (0.2-1.0); BLOOD UREA NITROGEN 11 MG/DL (7-18); CARBON DIOXIDE LEVEL 23 MEQ/L (21-32); CHLORIDE LEVEL 107 MEQ/L (98-107); CHOLESTEROL LEVEL 132 MG/DL (<200); CHOLESTEROL RISK RATIO 4.125 (<5); CREATININE FOR GFR 0.66 MG/DL (0.55-1.30); GLOMERULAR FILTRATION RATE > 60.0 (>60); GLUCOSE, FASTING 99 MG/DL (70-100); HDL CHOLESTEROL 32 MG/DL (>40); LDL CHOLESTEROL 62 MG/DL (<100); NON-HDL-C 100 MG/DL; POTASSIUM SERUM 4.7 MEQ/L (3.5-5.1); SODIUM LEVEL 139 MEQ/L (136-145); TOTAL PROTEIN 7.4 GM/DL (6.4-8.2); TRIGLYCERIDES LEVEL 190 MG/DL (<150)
[2019-08-22 14:15] LABS: TOTAL 25(OH) VITAMIN D 26.5 NG/ML (30.0-100.0)
== END ==
LOC: M LAB REF 12:33
PROVIDERS: ATTEND Family Medicine
DX: Z13.228 Encounter for screening for other metabolic disorders (principal)

== ENCOUNTER → 2019-10-30 | Outpatient (REF) | payer OTHER, MEDICAID ==
[2019-10-30 19:20] LABS: HEMATOCRIT 41.5 % (36.0-47.0); HEMOGLOBIN 13.5 g/dl (12.0-15.5); MEAN CORPUSCULAR HGB CONC 32.5 g/dl (32.0-36.5); MEAN CORPUSCULAR VOLUME 86.1 fl (80.0-96.0); PLATELET COUNT, AUTOMATED 288 10^3/uL (150-450); RED BLOOD COUNT 4.82 10^6/uL (4.00-5.40); WHITE BLOOD COUNT 9.3 10^3/uL (4.0-10.0)
[2019-10-30 20:27] LABS: HCG, SERUM QUANTITATIVE 49270 MIU/ML
[2019-10-31 10:10] LABS: RUBELLA IgG QUALITATIVE IMMUNE (IMMUNE)
[2019-10-31 10:39] LABS: HIV 1&2 SCREEN CENTAUR NEGATIVE (NEGATIVE)
[2019-10-31 10:48] LABS: HEPATITIS C VIRUS ABY INDEX > 11.0 INDEX (<0.8)
== END ==
LOC: M LAB REF 18:09
PROVIDERS: ATTEND Nurse Practitioner Women's Health
DX: O36.80X0 Pregnancy with inconclusive fetal viability, not applicable or unspecified (principal); Z32.01 Encounter for pregnancy test, result positive

== ENCOUNTER → 2019-11-15 | Outpatient (REF) | payer OTHER, MEDICAID ==
[2019-11-15 18:09] LABS: ALBUMIN 3.6 GM/DL (3.2-5.2); ALT/SGPT 69 U/L (12-78); BILIRUBIN,TOTAL 0.2 MG/DL (0.2-1.0); BLOOD UREA NITROGEN 9 MG/DL (7-18); CARBON DIOXIDE LEVEL 26 MEQ/L (21-32); CHLORIDE LEVEL 106 MEQ/L (98-107); CREATININE FOR GFR 0.59 MG/DL (0.55-1.30); GLOMERULAR FILTRATION RATE > 60.0 (>60); GLUCOSE, FASTING 86 MG/DL (70-100); POTASSIUM SERUM 3.9 MEQ/L (3.5-5.1); SODIUM LEVEL 138 MEQ/L (136-145); TOTAL PROTEIN 7.8 GM/DL (6.4-8.2)
[2019-11-16 12:06] LABS: HEPATITIS B SURFACE ANTIBODY NEGATIVE (POSITIVE)
[2019-11-16 12:17] LABS: HEPATITIS B CORE ANTIBODY IGM NEGATIVE (NEGATIVE)
[2019-11-17 08:32] LABS: HEPATITIS A IgG TOTAL Negative (Negative); HEPATITIS B CORE ANTIBODY IGG Negative (Negative)
== END ==
LOC: M LAB REF 17:03
PROVIDERS: ATTEND Nurse Practitioner Women's Health
DX: Z36.89 Encounter for other specified antenatal screening (principal); K73.2 Chronic active hepatitis, not elsewhere classified

== ENCOUNTER → 2019-11-29 | Outpatient (REF) | payer OTHER ==
[2019-12-04 00:06] LABS: HEPATITIS C QUANTITATION 277070 IU/mL (.); HEPATITIS C VIRUS GENOTYPE 1b (.)
== END ==
LOC: M LAB REF 13:39
PROVIDERS: ATTEND Obstetrics & Gynecology
DX: K73.2 Chronic active hepatitis, not elsewhere classified (principal)

== ENCOUNTER → 2020-01-23 | Outpatient (CLI) | payer OTHER ==
--- NOTE | 2020-01-23 15:05 | REP ---
OB ULTRASOUND: Real-time sonographic evaluation of the gravid uterus performed. Transabdominal and endovaginal technique is utilized. There is a single living intrauterine gestation. Estimated gestational age is 20 weeks 0 days, EDC 06/11/2020. Today's measurements indicate appropriate growth. BPD 45 mm = 19 weeks 4 days, 37th percentile HC 173 mm = 19 weeks 6 days, 45th percentile AC 157 mm = 20 weeks, 6 days, 68th percentile FL 32 mm = 20 weeks 1 days, 53rd percentile HC/AC ratio 1.10, within normal range of 1.06 to 1.24. Estimated weight 351 grams, 61st percentile. Cervix is closed and measures 3.8 cm in length. heart rate 131 beats per minute. SEEN/GROSSLY UNREMARKABLE Lateral ventricles yes Posterior fossa yes Upper lip yes Four-chamber heart no LVOT no RVOT no Stomach yes Cord insertion yes Three vessel cord yes Kidneys yes Bladder yes Spine no position: Vertex. Placenta: Posterior and grade 0 with no previa or abruption. Somewhat low lying. There appears to be a venous santana at the inferior tip of the placenta. The tip of the placenta is 2 cm from the internal cervical os. Amniotic fluid: Amniotic fluid appears within normal limits for gestational age. Electronically Signed by Maurilio Darling MD 01/23/2020 03:31 P
== END ==
LOC: M RAD 11:19
PROVIDERS: ATTEND Obstetrics & Gynecology
DX: Z34.82 Encounter for supervision of other normal pregnancy, second trimester (principal)

== ENCOUNTER → 2020-02-20 | Outpatient (CLI) | payer OTHER ==
--- NOTE | 2020-02-20 11:37 | REP ---
Clinical: Anatomical evaluation. Comparison: 01/23/2022 . Findings: Examination demonstrates a single live intrauterine in variable presentation. motion is identified by technologist. Placenta is noted posterior and grade I without evidence for placenta previa or abruption. Amniotic fluid volume is normal. Cervix measures 4.5 cm in length and appears closed. No evidence for nuchal cord. Gestational age by LMP 24 weeks 0 days with CHERYLE 06/11/2020 . Gestational age by current measurements 24 weeks 2 days with CHERYLE 06/09/2020 . FHR equals 140 beats per minute. Estimated weight 733 grams ( 67th percentile). Anatomical assessment demonstrates normal structures including cranium, choroid plexus, cavum, cerebellum/posterior fossa, facial features, lungs, four-chamber heart/ventricular outflow tracts, diaphragm, stomach, cord insertion/three-vessel cord, kidneys/bladder, spine, and extremities. Impression: Single live intrauterine in variable presentation demonstrating appropriate interval growth. Anatomical assessment is complete and normal. No gross abnormalities are identified. Electronically Signed by Kvng Fuentes MD 02/20/2020 11:29 A
== END ==
LOC: M RAD 10:24
PROVIDERS: ATTEND Obstetrics & Gynecology
DX: Z34.82 Encounter for supervision of other normal pregnancy, second trimester (principal)

== ENCOUNTER → 2020-03-14 | Outpatient (CLI) | payer OTHER ==
[2020-03-14 13:27] LABS: HEMATOCRIT 38.6 % (36.0-47.0); HEMOGLOBIN 12.7 g/dl (12.0-15.5); MEAN CORPUSCULAR HEMOGLOBIN 28.5 pg (27.0-33.0); MEAN CORPUSCULAR HGB CONC 32.9 g/dl (32.0-36.5); MEAN CORPUSCULAR VOLUME 86.7 fl (80.0-96.0); PLATELET COUNT, AUTOMATED 337 10^3/uL (150-450); RED BLOOD COUNT 4.45 10^6/uL (4.00-5.40); WHITE BLOOD COUNT 11.2 10^3/uL (4.0-10.0)
== END ==
LOC: M LAB 11:54
PROVIDERS: ATTEND Obstetrics & Gynecology
DX: Z34.82 Encounter for supervision of other normal pregnancy, second trimester (principal); Z36.89 Encounter for other specified antenatal screening

== ENCOUNTER → 2020-05-14 | Outpatient (REF) | payer OTHER | LOC: M LAB REF 11:57 | PROVIDERS: ATTEND Obstetrics & Gynecology | DX: Z34.83 Encounter for supervision of other normal pregnancy, third trimester (principal) ==

== ENCOUNTER → 2020-06-06 | Outpatient (CLI) | payer OTHER | LOC: M LABSMTC 14:10 | PROVIDERS: ATTEND Family Medicine | DX: Z11.59 Encounter for screening for other viral diseases (principal) | CPT/HCPCS: C9803; U0003 ==

== ENCOUNTER → 2020-10-15 | Outpatient (REF) | payer OTHER ==
[2020-10-15 17:16] LABS: BASO # 0.1 10^3/uL (0.0-0.2); BASO % 0.7 % (0.0-1.0); EOS # 0.3 10^3/uL (0.0-0.5); EOS % 3.5 % (0.0-3.0); HEMATOCRIT 41.4 % (36.0-47.0); HEMOGLOBIN 12.9 g/dl (12.0-15.5); LYMPH # 3.1 10^3/uL (1.5-5.0); MEAN CORPUSCULAR HEMOGLOBIN 26.9 pg (27.0-33.0); MEAN CORPUSCULAR HGB CONC 31.2 g/dl (32.0-36.5); MEAN CORPUSCULAR VOLUME 86.4 fl (80.0-96.0); MONO # 0.7 10^3/uL (0.0-0.8); MONO % 8.9 % (0.0-5.0); NEUTROPHILS # 3.6 10^3/uL (1.5-8.5); NEUTROPHILS % 46.6 % (36.0-66.0); PLATELET COUNT, AUTOMATED 269 10^3/uL (150-450); RED BLOOD COUNT 4.79 10^6/uL (4.00-5.40); WHITE BLOOD COUNT 7.6 10^3/uL (4.0-10.0)
[2020-10-15 17:37] LABS: ALBUMIN 3.7 GM/DL (3.2-5.2); ALT/SGPT 101 U/L (12-78); BILIRUBIN,TOTAL 0.3 MG/DL (0.2-1.0); BLOOD UREA NITROGEN 11 MG/DL (7-18); CALCIUM LEVEL 8.6 MG/DL (8.5-10.1); CARBON DIOXIDE LEVEL 29 MEQ/L (21-32); CHLORIDE LEVEL 106 MEQ/L (98-107); CHOLESTEROL LEVEL 150 MG/DL (<200); CREATININE FOR GFR 0.65 MG/DL (0.55-1.30); GLOMERULAR FILTRATION RATE > 60.0 (>60); GLUCOSE, FASTING 85 MG/DL (70-100); HDL CHOLESTEROL 40 MG/DL (>40); LDL CHOLESTEROL 71 MG/DL (<100); NON-HDL-C 110 MG/DL; POTASSIUM SERUM 4.2 MEQ/L (3.5-5.1); SODIUM LEVEL 140 MEQ/L (136-145); TOTAL 25(OH) VITAMIN D 17.4 NG/ML (30.0-100.0); TOTAL PROTEIN 7.5 GM/DL (6.4-8.2); TRIGLYCERIDES LEVEL 196 MG/DL (<150)
== END ==
LOC: M LAB REF 16:10
PROVIDERS: ATTEND Physician Assistant
DX: L65.9 Nonscarring hair loss, unspecified (principal); E78.5 Hyperlipidemia, unspecified; E55.9 Vitamin D deficiency, unspecified

== ENCOUNTER → 2020-10-28 | Outpatient (CLI) | payer SELFPAY | LOC: M LABSMTC 11:07 | PROVIDERS: ATTEND Pediatrics | DX: Z20.828 Contact with and (suspected) exposure to other viral communicable diseases (principal) ==

== ENCOUNTER → 2022-02-11 | Outpatient (REF) | payer OTHER ==
[2022-02-12 15:05] LABS: APPEARANCE, URINE CLOUDY (CLEAR); BACTERIA, URINE AUTO 3+ (NEGATIVE); BILIRUBIN, URINE AUTO NEGATIVE (NEGATIVE); BLOOD, URINE BLOOD 3+ (NEGATIVE); CALCIUM OXALATE CRYSTALS MODERATE; COLOR, URINE AMBER (YELLOW); GLUCOSE, URINE (UA) AUTO NEGATIVE (NEGATIVE); KETONE, URINE AUTO NEGATIVE (NEGATIVE); LEUKOCYTE ESTERASE, URINE AUTO 2+ (NEGATIVE); MUCUS, URINE SMALL (NEGATIVE); NITRITE, URINE AUTO POSITIVE (NEGATIVE); PROTEIN, URINE AUTO 2+ mg/dL (NEGATIVE); RBC, URINE AUTO TNTC /HPF (0-3); SPECIFIC GRAVITY URINE AUTO 1.028 (1.002-1.035); SQUAMOUS EPITHELIAL CELL UR AU 2 /HPF (0-6); TRANSITIONAL EPITHELIAL AUTO <1 /HPF; UROBILINOGEN, URINE AUTO 0.2 mg/dL (0.0-2.0); WBC, URINE AUTO TNTC /HPF (0-3)
== END ==
LOC: M LAB REF 14:47
PROVIDERS: ATTEND Physician Assistant
DX: N39.0 Urinary tract infection, site not specified (principal)

== ENCOUNTER → 2022-08-26 | Outpatient (REF) | payer OTHER | LOC: M LAB REF 22:44 | PROVIDERS: ATTEND Physician Assistant | DX: R50.9 Fever, unspecified (principal); J02.9 Acute pharyngitis, unspecified; R53.83 Other fatigue ==

== ENCOUNTER → 2023-08-12 | Outpatient (CLI) | payer OTHER ==
[2023-08-12 17:07] LABS: HEMATOCRIT 40.7 % (36.0-47.0); HEMOGLOBIN 13.4 g/dl (12.0-15.5); MEAN CORPUSCULAR HEMOGLOBIN 29.1 pg (27.0-33.0); MEAN CORPUSCULAR HGB CONC 32.9 g/dl (32.0-36.5); MEAN CORPUSCULAR VOLUME 88.3 fl (80.0-96.0); PLATELET COUNT, AUTOMATED 274 10^3/uL (150-450); RED BLOOD COUNT 4.61 10^6/uL (4.00-5.40); WHITE BLOOD COUNT 6.6 10^3/uL (4.0-10.0)
[2023-08-12 17:27] LABS: ALBUMIN 3.9 G/DL (3.2-5.2); ALKALINE PHOSPHATASE 92 U/L (46-116); ALT/SGPT 54 U/L (7.0-40); AST/SGOT 28 U/L (<34); BILIRUBIN,TOTAL 0.5 MG/DL (0.3-1.2); BLOOD UREA NITROGEN 13 MG/DL (9-23); CARBON DIOXIDE LEVEL 29 MMOL/L (20-31); CHLORIDE LEVEL 105 MMOL/L (98-107); CREATININE FOR GFR 0.68 MG/DL (0.55-1.30); GLOMERULAR FILTRATION RATE > 60.0 (>60); GLUCOSE, FASTING 127 MG/DL (60-100); POTASSIUM SERUM 4.1 MMOL/L (3.5-5.1); SODIUM LEVEL 139 MMOL/L (136-145); TOTAL PROTEIN 7.5 G/DL (5.7-8.2)
[2023-08-12 17:51] LABS: HIV 1&2 SCREEN NEGATIVE (NEGATIVE)
[2023-08-12 17:53] LABS: HCG, SERUM QUALITATIVE NEGATIVE (NEGATIVE)
[2023-08-12 17:56] LABS: GC DNA AMPLIFICATION NEGATIVE (NEGATIVE)
[2023-08-12 18:22] LABS: HEPATITIS C VIRUS ABY INDEX > 11.00 INDEX (<0.8)
== END ==
LOC: M WUC 11:00
PROVIDERS: ATTEND Family Medicine
DX: F11.20 Opioid dependence, uncomplicated (principal)

== ENCOUNTER → 2024-05-03 | Outpatient (REF) | payer OTHER ==
[2024-05-03 19:15] LABS: INR 1.05; PROTHROMBIN TIME 13.4 SECONDS (12.5-14.5)
[2024-05-03 19:20] LABS: BASO % 0.5 % (0.0-1.0); EOS # 0.3 10^3/uL (0.0-0.5); EOS % 5.1 % (0.0-3.0); HEMOGLOBIN 13.2 g/dl (12.0-15.5); LYMPH # 2.5 10^3/uL (1.5-5.0); LYMPH % 44.3 % (24.0-44.0); MEAN CORPUSCULAR HEMOGLOBIN 29.7 pg (27.0-33.0); MEAN CORPUSCULAR VOLUME 90.1 fl (80.0-96.0); MONO # 0.6 10^3/uL (0.0-0.8); MONO % 10.1 % (2.0-8.0); NEUTROPHILS # 2.3 10^3/uL (1.5-8.5); PLATELET COUNT, AUTOMATED 247 10^3/uL (150-450); RED BLOOD COUNT 4.44 10^6/uL (4.00-5.40); WHITE BLOOD COUNT 5.7 10^3/uL (4.0-10.0)
[2024-05-03 19:49] LABS: ALBUMIN 3.5 G/DL (3.2-5.2); ALKALINE PHOSPHATASE 122 U/L (46-116); ALT/SGPT 89 U/L (7.0-40); AST/SGOT 59 U/L (<34); BILIRUBIN,TOTAL 0.5 MG/DL (0.3-1.2); BLOOD UREA NITROGEN 14 MG/DL (9-23); CALCIUM LEVEL 9.1 MG/DL (8.5-10.1); CARBON DIOXIDE LEVEL 28 MMOL/L (20-31); CHLORIDE LEVEL 106 MMOL/L (98-107); CREATININE FOR GFR 0.65 MG/DL (0.55-1.30); GLOMERULAR FILTRATION RATE > 60.0 (>60); GLUCOSE, FASTING 78 MG/DL (60-100); SODIUM LEVEL 139 MMOL/L (136-145); TOTAL PROTEIN 6.9 G/DL (5.7-8.2)
[2024-05-03 20:04] LABS: HEPATITIS B SURFACE ANTIGEN NEGATIVE (NEGATIVE)
[2024-05-03 20:16] LABS: HIV 1&2 SCREEN NEGATIVE (NEGATIVE)
== END ==
LOC: M LAB REF 18:43
PROVIDERS: ATTEND Family Medicine Addiction Medicine
DX: B18.2 Chronic viral hepatitis C (principal)

== ENCOUNTER 2024-10-22 23:32 | Emergency (ER) | payer MEDICAID, OTHER ==
[~2024-10-22] VITALS: Ht 167.6 cm; Wt 83.1 kg
[2024-10-22 23:38] VITALS: TEMP 97.6
[2024-10-23 02:32] VITALS: O2SAT 95
[2024-10-23] MEDS ORDERED: CEPH500C PO (02:36)
[2024-10-23 02:40] VITALS: BP 169/85
[2024-10-24] MEDS ORDERED: fentaNYL 100 MCG/2 ML INJECTION As Ordered ONE (12:57)
[2024-10-24] MEDS ORDERED: MIDAZOLAM INJ 2MG/2ML VIAL As Ordered ONE (12:57)
[2024-10-24] MEDS ORDERED: LIDOCAINE 2% 100MG/5ML SDV (FOR ANES.) As Ordered ONE (12:57)
[2024-10-24] MEDS ORDERED: propofoL 200 MG/20 ML VIAL As Ordered ONE (12:58)
[2024-10-24] MEDS ORDERED: ONDANSETRON 4MG 2ML VIAL As Ordered ONE (12:58)
[2024-10-24] MEDS ORDERED: ROCURONIUM BROMIDE 50MG/5ML VIAL As Ordered ONE (12:58)
[2024-10-24] MEDS ORDERED: ACETAMINOPHEN 1000MG/100ML IV BAG As Ordered ONE (14:06)
[2024-10-24] MEDS ORDERED: ePHEDrine SULFATE 25 MG/5 ML(5MG/ML) SYRINGE As Ordered ONE (15:08)
[2024-10-24] MEDS ORDERED: PHENYLephrine 500MCG 5ML (100MCG/ML) SYRINGE As Ordered ONE (15:08)
== END 2024-10-23 02:48 | disposition home or self-care (01) ==
LOC: M ED 23:32
DX: S10.85XA Superficial foreign body of other specified part of neck, initial encounter (principal); Y92.019 Unspecified place in single-family (private) house as the place of occurrence of the external cause; Y93.9 Activity, unspecified; Y99.9 Unspecified external cause status; W45.8XXA Other foreign body or object entering through skin, initial encounter; B19.20 Unspecified viral hepatitis C without hepatic coma; F17.210 Nicotine dependence, cigarettes, uncomplicated; F12.10 Cannabis abuse, uncomplicated; F15.10 Other stimulant abuse, uncomplicated; Z79.2 Long term (current) use of antibiotics

== ENCOUNTER 2024-10-24 13:13 | Day surgery (SDC) | payer OTHER ==
[~2024-10-24] VITALS: Ht 167.6 cm; Wt 80.1 kg
[~2024-10-24 13:13] MED LIST changes: -ISOVUE-370 76% 100ML VIAL As Ordered ONE; +LIDOCAINE 2% 100MG/5ML SDV (FOR ANES.) ONE; +MIDAZOLAM INJ 2MG/2ML VIAL ONE; +ONDANSETRON 4MG 2ML VIAL ONE; +ROCURONIUM BROMIDE 50MG/5ML VIAL ONE; +fentaNYL 100 MCG/2 ML INJECTION ONE; +propofoL 200 MG/20 ML VIAL ONE
[2024-10-24] MEDS ORDERED: NS 1,000 ML IV SCH ×2 (13:55→16:55)
[2024-10-24] MEDS ORDERED: ACETAMINOPHEN 1000MG/100ML IV BAG ONE (14:06)
[2024-10-24] MEDS: ceFAZolin SOD 2 GM in IV 1 EA IV ONE (14:25)
[2024-10-24] MEDS ORDERED: fentaNYL 100 MCG/2 ML INJECTION ONE ×2 (14:34→15:22)
[2024-10-24] MEDS: metroNIDAZOLE 500 MG in IV 1 EA IV ONE (14:36)
[2024-10-24] MEDS: EPINEPHrine 1MG/ML INJ 30ML MD-VIAL As Ordered ONE (15:02)
[2024-10-24] MEDS ORDERED: ePHEDrine SULFATE 25 MG/5 ML(5MG/ML) SYRINGE ONE (15:08)
[2024-10-24] MEDS ORDERED: PHENYLephrine 500MCG 5ML (100MCG/ML) SYRINGE ONE (15:08)
[2024-10-24] MEDS ORDERED: propofoL 200 MG/20 ML VIAL ONE (15:17)
[2024-10-24] MEDS: BACITRACIN OINTMENT 30GM TUBE As Ordered ONE (16:43)
[2024-10-24] MEDS: LIDOCAINE W/EPINEPHRINE 1% 20ML VIAL As Ordered ONE (16:52)
[2024-10-24] MEDS ORDERED: HYDROMORPHONE HCL 0.5 MG/ 0.5 ML SYRINGE IV PRN (16:55)
[2024-10-24] MEDS ORDERED: fentaNYL 100 MCG/2 ML INJECTION IV PRN (16:55)
[2024-10-24] MEDS: ONDANSETRON 4MG 2ML VIAL IV PRN (17:23)
[2024-10-24] MEDS: oxyCODONE 5MG TAB PO PRN (17:37)
[2024-10-24 18:02] VITALS: BP 134/86; TEMP 96.9; O2SAT 96
== END 2024-10-24 18:34 | disposition home or self-care (01) ==
LOC: M SDC 13:13
PROVIDERS: ATTEND Otolaryngology
DX: S11.84XA Puncture wound with foreign body of other specified part of neck, initial encounter (principal); W45.8XXA Other foreign body or object entering through skin, initial encounter; Y92.9 Unspecified place or not applicable; Y93.89 Activity, other specified; Y99.9 Unspecified external cause status; F11.10 Opioid abuse, uncomplicated; F15.10 Other stimulant abuse, uncomplicated; F12.10 Cannabis abuse, uncomplicated; B19.20 Unspecified viral hepatitis C without hepatic coma; F17.200 Nicotine dependence, unspecified, uncomplicated; Z79.899 Other long term (current) drug therapy
CPT/HCPCS: 20520; 76000; 81025; 88300; J0131; J0171; J0690; J1100; J1836; J2250; J2371; J2405; J3010

== ENCOUNTER → 2024-10-24 | Outpatient (CLI) | payer OTHER ==
[~2024-10-24] MED LIST: CEPH500C PO; ISOVUE-370 76% 100ML VIAL As Ordered ONE
== END ==
LOC: M RAD 11:33
PROVIDERS: ATTEND Otolaryngology
DX: S11.84XA Puncture wound with foreign body of other specified part of neck, initial encounter (principal); Y92.9 Unspecified place or not applicable; Y93.9 Activity, unspecified; Y99.9 Unspecified external cause status; X58.XXXA Exposure to other specified factors, initial encounter
CPT/HCPCS: 70490; 76536; 88305; Q9967

== ENCOUNTER → 2024-10-27 | Outpatient (REF) | payer OTHER ==
[~2024-10-27] MED LIST changes: -LIDOCAINE 2% 100MG/5ML SDV (FOR ANES.) ONE; -MIDAZOLAM INJ 2MG/2ML VIAL ONE; -ONDANSETRON 4MG 2ML VIAL ONE; -ROCURONIUM BROMIDE 50MG/5ML VIAL ONE; -fentaNYL 100 MCG/2 ML INJECTION ONE; -propofoL 200 MG/20 ML VIAL ONE
[2024-10-27 20:14] LABS: APPEARANCE, URINE HAZY (CLEAR); BACTERIA, URINE AUTO NEGATIVE (NEGATIVE); BILIRUBIN, URINE AUTO NEGATIVE (NEGATIVE); BLOOD, URINE BLOOD NEGATIVE (NEGATIVE); CALCIUM OXALATE CRYSTALS MODERATE; COLOR, URINE YELLOW (YELLOW); GLUCOSE, URINE (UA) AUTO NEGATIVE (NEGATIVE); KETONE, URINE AUTO NEGATIVE (NEGATIVE); LEUKOCYTE ESTERASE, URINE AUTO TRACE (NEGATIVE); NITRITE, URINE AUTO NEGATIVE (NEGATIVE); PROTEIN, URINE AUTO NEGATIVE (NEGATIVE); RBC, URINE AUTO 0 /HPF (0-3); SPECIFIC GRAVITY URINE AUTO 1.014 (1.002-1.035); SQUAMOUS EPITHELIAL CELL UR AU 2 /HPF (0-6); UROBILINOGEN, URINE AUTO 0.2 mg/dL (0.0-2.0); WBC, URINE AUTO 2 /HPF (0-3)
== END ==
LOC: M LAB REF 19:46
PROVIDERS: ATTEND Physician Assistant Medical
DX: N39.0 Urinary tract infection, site not specified (principal)

== ENCOUNTER 2025-06-06 17:05 | Emergency (ER) | payer OTHER ==
[~2025-06-06] VITALS: Ht 167.6 cm; Wt 83.0 kg
[2025-06-06] MEDS ORDERED: CETI10CH PO (19:17)
[2025-06-06] MEDS ORDERED: PEPC40TA12 PO (19:17)
[2025-06-06 19:30] VITALS: BP 143/92; TEMP 98.2; O2SAT 98
== END 2025-06-06 19:32 | disposition home or self-care (01) ==
LOC: M ED 17:05
DX: R21 Rash and other nonspecific skin eruption (principal); I10 Essential (primary) hypertension; F17.210 Nicotine dependence, cigarettes, uncomplicated; Z79.899 Other long term (current) drug therapy